=== PATIENT | male | born 1965 | race Caucasian/White ===

== ENCOUNTER 2017-03-04 06:59 | Day surgery (SDC) | payer OTHER ==
[2017-03-04] MEDS ORDERED: Simethicone 40 mg/0.6 ml Liquid (30 ml) ONE (08:00)
[2017-03-04] MEDS ORDERED: Propofol 10 mg/ml Inj (20 ML) ONE ×2 (08:35→08:46)
[2017-03-04 10:05] VITALS: TEMP 96
[2017-03-04 10:15] VITALS: BP 118/75; PULSE 68; RESP 20; O2SAT 100
== END 2017-03-04 10:00 | disposition home or self-care (01) ==
LOC: C.ENDO 06:59
PROVIDERS: ATTEND Internal Medicine
DX: Z12.11 Encounter for screening for malignant neoplasm of colon (principal); K64.8 Other hemorrhoids; I10 Essential (primary) hypertension
CPT/HCPCS: 45378; J2704